=== PATIENT | male | born 1950 | race Caucasian/White ===

== ENCOUNTER 2017-08-07 14:55 | Inpatient (IN) | payer OTHER, MEDICARE ==
[~2017-08-07] VITALS: Ht 190.5 cm; Wt 154.2 kg
--- NOTE | 2017-08-07 15:00 | NUR ---
[id number] S/P TRIP AND FALL IN THE PARKING LOT. C/O RT KNEE, RT UPPER LEG. DENIES HITTING HEAD. VSS
[2017-08-07] MEDS ORDERED: HYDROCODONE/APAP 5/325MG 1 EACH TABLET PO ONE (15:30)
[2017-08-07] MEDS ORDERED: HYDROCODONE/APAP 5/325MG 1 EACH TABLET ONE (15:39)
--- NOTE | 2017-08-07 16:07 | NUR ---
CALLED [facility], DR BONILLA WAS PAGED.
--- NOTE | 2017-08-07 16:35 | NUR ---
IV ACCESS STARTED. BLOOD DRAWN FOR LABS.
[2017-08-07 16:39] LABS: BASOPHILS # (AUTO) 0.1 /CMM (0.0-0.2); BASOPHILS % (AUTO) 0.5 % (0.0-2.0); EOSINOPHILS # (AUTO) 0.1 /CMM (0.0-0.7); EOSINOPHILS % (AUTO) 0.8 % (0.0-6.0); HEMATOCRIT 38 % (39-51); HEMOGLOBIN 13.4 g/dL (13.5-17.5); LYMPHOCYTES # (AUTO) 1.4 /CMM (0.8-4.8); LYMPHOCYTES % (AUTO) 13.2 % (20.0-44.0); MEAN CORPUSCULAR HEMOGLOBIN 32 PG (26.0-33.0); MEAN CORPUSCULAR HGB CONC 35 g/dl (31.0-36.0); MEAN CORPUSCULAR VOLUME 91 fL (80-96); MONOCYTES # (AUTO) 0.9 /CMM (0.1-1.30); NEUTROPHILS % (AUTO) 76.5 % (43.0-81.0); PLATELET COUNT (AUTO) 124 /CMM (150-450); RDW COEFFICIENT OF VARIATION 13.5 (11.5-15.0); RED BLOOD CELL COUNT(AUTO) 4.18 MIL/uL (4.5-6.0); WHITE BLOOD COUNT (AUTO) 10.5 K/uL (4.3-11.0)
[2017-08-07 16:48] LABS: CALCIUM, SERUM 8.6 mg/dL (8.5-10.1); CREATININE 1.3 mg/dL (0.6-1.3); POTASSIUM 4.2 mmol/L (3.5-5.1)
--- NOTE | 2017-08-07 16:52 | NUR ---
CALLED [employer] STATION MANAGER WAS PAGED.
[2017-08-07 17:04] LABS: INR 0.96 (0.87-1.13)
[2017-08-07] MEDS ORDERED: ONDANSETRON HCL/PF 4 MG/2 ML VIAL IVP PRN ×2 (17:30→19:30)
[2017-08-07] MEDS ORDERED: HYDROCODONE/APAP 10/325MG 1 EA TABLET PO PRN (17:30)
[2017-08-07] MEDS ORDERED: HYDROCODONE/APAP 5/325MG 1 EACH TABLET PO PRN (17:30)
[2017-08-07] MEDS ORDERED: Z GUARD REMEDY 2 OZ OINT TP PRN ×2 (17:30→19:30)
[2017-08-07] MEDS ORDERED: HYDROMORPHONE INJ 2 MG/ML DISP.SYRIN IV PRN (17:30)
[2017-08-07] MEDS ORDERED: ACETAMINOPHEN 325 MG TABLET PO PRN ×2 (17:30→19:30)
[2017-08-07] MEDS ORDERED: MAG HYDROX/AL HYDROX/SIMETH 30 ML UDC PO PRN ×2 (17:30→19:30)
[2017-08-07] MEDS ORDERED: MAGNESIUM HYDROXIDE 30 ML UDC PO PRN ×2 (17:30→19:30)
[2017-08-07] MEDS ORDERED: ZOLPIDEM TARTRATE 5 MG TABLET PO PRN ×2 (17:30→19:30)
--- NOTE | 2017-08-07 17:34 | NUR ---
REPORT GIVEN TO FIDENCIO OCAMPO FOR MS ROOM 104
[2017-08-07] MEDS ORDERED: SIMV40TA5 PO (18:15)
[2017-08-07] MEDS ORDERED: GABA-532 PO (18:15)
[2017-08-07] MEDS ORDERED: CHOL200026 PO (18:15)
[2017-08-07] MEDS ORDERED: BUDE3CAP8 PO (18:15)
[2017-08-07] MEDS ORDERED: LOSA50TA21 PO (18:15)
[2017-08-07] MEDS ORDERED: TRIA1CAP6 PO (18:15)
[2017-08-07 20:00] VITALS: BP 110/64
--- NOTE | 2017-08-07 20:17 | NUR ---
spoke to md MOREL, WITH NEW ORDER FOR DIET, IVF POST MN AND MED RECON.
[2017-08-07] MEDS: CHOLECALCIFEROL 1,000 UNIT TABLET (VIT D3) PO SCH (21:51)
[2017-08-07] MEDS: HYDROCODONE/APAP 10/325MG 1 EA TABLET PO PRN (21:52)
[2017-08-07] MEDS: SIMVASTATIN 40 MG TABLET PO SCH (21:52)
[2017-08-08] MEDS: IV D5/ 0.9% NACL 1,000 ML IV PRN ×2 (00:25→21:02)
--- NOTE | 2017-08-08 03:04 | NUR ---
RN NOTE RECEIVED REPORT FROM VIANEY OCAMPO FOR CONTINUITY OF CARE. RECEIVED PT IN NO ACUTE DISTRESS IN BED. PT IS A/O X 4 AND ABLE TO MAKE NEEDS KNOWN. WILL CONTINUE TO MONITOR PT.
[2017-08-08] MEDS: HYDROMORPHONE INJ 2 MG/ML DISP.SYRIN IV PRN ×2 (03:10→07:02)
[2017-08-08 04:00] VITALS: BP_SYST 123; BP_SYST 139; BP_DIAS 68; BP_DIAS 96
--- NOTE | 2017-08-08 06:47 | NUR ---
RN CLOSING NOTE PT REMAINS IN NO ACUTE DISTRESS IN BED. PT DID NOT HAVE ANY SIGNIFICANT CHANGE IN CONDITION DURING SHIFT. ALL NEEDS MET, ALL ORDERS CARRIED OUT. PT AWAITING RIGHT QUADRICEPS TENDON SX. WILL ENDORSE CARE TO AM RN FOR CONTINUITY OF CARE.
[2017-08-08] MEDS ORDERED: PANTOPRAZOLE 40 MG TABLET.DR PO SCH (07:30)
--- NOTE | 2017-08-08 07:30 | NUR ---
PT RECEIVED RESTING COMFORTABLY IN BED WITH EYES CLOSED. NO S/S OR C/O PAIN OR DISTRESS NOTED. SIDE RAILS UP X2, CALL LIGHT LEFT WITHIN REACH. WILL CONTINUE PLAN OF CARE.
[2017-08-08 08:00] VITALS: BP 138/72
--- NOTE | 2017-08-08 08:00 | NUR ---
AM CHARTING I CHARTED INTERVENTIONS UNDER JULI SUSAN RN'S ACCOUNT BY MISTAKE.
[2017-08-08] MEDS ORDERED: BUPIVACAINE 0.5 % PF 150 MG/30 ML VIAL ONE (09:17)
[2017-08-08] MEDS ORDERED: SUCCINYLCHOLINE CHLORIDE 20 MG/ML VIAL ONE (09:38)
[2017-08-08] MEDS ORDERED: ROCURONIUM BROMIDE 50 MG/5 ML ONE (09:38)
[2017-08-08] MEDS ORDERED: HYDROMORPHONE 1 MG/1 ML DISP.SYRIN ONE (12:09)
[2017-08-08] MEDS: BUDESONIDE 3 MG CAP.SR.24H PO SCH (13:36)
[2017-08-08] MEDS: HYDROCODONE/APAP 10/325MG 1 EA TABLET PO PRN ×2 (13:36→23:57)
[2017-08-08] MEDS: GABAPENTIN 100 MG CAPSULE PO SCH ×2 (13:37→16:52)
[2017-08-08] MEDS: PANTOPRAZOLE 40 MG TABLET.DR PO SCH (13:37)
[2017-08-08] MEDS: TRIAMTERENE/HYDROCHLOROTHIAZID (37.5/25MG) 1 UDCAP PO SCH (13:38)
[2017-08-08] MEDS: CHOLECALCIFEROL 1,000 UNIT TABLET (VIT D3) PO SCH (13:38)
[2017-08-08] MEDS ORDERED: TRAMADOL HCL 50 MG TABLET PO PRN (14:30)
[2017-08-08] MEDS ORDERED: oxyCODONE IR immediate release 5 MG CAPSULE PO PRN (14:30)
[2017-08-08 16:00] VITALS: BP 132/71
[2017-08-08] MEDS: RIVAROXABAN 10 MG TABLET PO SCH (16:54)
[2017-08-08] MEDS: HYDROCODONE/APAP 5/325MG 1 EACH TABLET PO PRN (16:55)
[2017-08-08] MEDS: CEFAZOLIN IV SCH (17:56)
[2017-08-08] MEDS: LOSARTAN POTASSIUM 50 MG TABLET PO SCH (17:56)
[2017-08-08] MEDS: D5W IV SCH (17:56)
--- NOTE | 2017-08-08 19:30 | NUR ---
RN INITIAL NOTES RECEIVED PATIENT IN BED, AWAKE, ALERT AND ORIENTED X4. BREATHING EVEN AND NONLABORED, TOLERATING ROOM AIR WELL, FREE FROM ANY S/S OF RESPIRATORY DISTRESS. PATIENT DENIES ANY PAIN AT THIS TIME. RIGHT AC #20 GAUGE PATENT AND INTACT, IVF INFUSING PRESCRIBED TOLERATING WELL, FREE FROM ANY S/S OF INFILTRATION OR PHLEBITIS. RIGHT LEG KNEE IMMOBILIZER IN PLACE, S/P RIGHT QUADRICEPS TENDON REPAIR EARLIER TODAY. RIGHT LEG NOTED WITH NONPITTING EDEMA. PLAN OF CARE DISCUSSED WITH THE PATIENT, WHO VERBALIZES UNDERSTANDING, CALL LIGHT LEFT WITHIN EASY REACH, BED IN LOWEST AND LOCKED POSITION. WILL CONTINUE TO CLOSELY MONITOR THE PATIENT.
--- NOTE | 2017-08-08 19:51 | NUR ---
CHANGE OF SHIFT REPORT PT RESTING COMFORTABLY IN BED WITH EYES CLOSED. NO S/S OR C/O PAIN OR DISTRESS NOTED. SIDE RAILS UP X2, CALL LIGHT LEFT WITHIN REACH. PT KEPT CLEAN, DRY, AND COMFORTABLY. NO SIGNIFICANT CHANGES SINCE PREVIOUS SHIFT. REPORT GIVEN TO KELSEY OCAMPO.
[2017-08-08 20:00] VITALS: BP_SYST 127; BP_DIAS 66; BP_DIAS 76
[2017-08-08] MEDS: SIMVASTATIN 40 MG TABLET PO SCH (21:01)
[2017-08-08] MEDS ORDERED: FAMOTIDINE/PF INJ 20 MG/2 ML VIAL IV ONE (21:22)
[2017-08-08] MEDS ORDERED: MAG HYDROX/AL HYDROX/SIMETH 30 ML UDC ONE (21:22)
[2017-08-08] MEDS: FAMOTIDINE/PF INJ 20 MG/2 ML VIAL IV SCH (21:26)
[2017-08-08] MEDS: MAG HYDROX/AL HYDROX/SIMETH 30 ML UDC PO PRN (21:26)
--- NOTE | 2017-08-08 21:32 | NUR ---
RN NOTES PATIENT WITH COMPLAINT OF DYSPEPSIA. DR CHEN MADE AWARE, WITH ORDER TRO CHANGE FREQUENCY OF MAALOX 30ML PO TO Q4H PRN, ALSO WITH NEW ORDER FOR PEPCID 20MG IVP BID, FIRST DOSE NOW. ORDERS READ BACK FOR CLARIFICATION, ORDERS PUT IN, CHARGE NURSE NOTIFIED FOR MEDICATION OVERRIDE. WILL ADMINISTER AND CONTINUE TO CLOSELY MONITOR THE PATIENT
[2017-08-08] MEDS ORDERED: cetrizine 10 MG TABLET ONE (23:30)
[2017-08-08] MEDS ORDERED: PROMETHAZINE HCL SYRUP 6.25 MG/5 ML UDC PO ONE (23:30)
[2017-08-08] MEDS ORDERED: PROMETHAZINE HCL 25 MG/ML AMPUL ONE (23:51)
[2017-08-08] MEDS: cetrizine 10 MG TABLET PO SCH (23:55)
[2017-08-08] MEDS: ONDANSETRON HCL/PF 4 MG/2 ML VIAL IVP PRN (23:56)
[2017-08-09] MEDS ORDERED: PROMETHAZINE HCL 25 MG/ML AMPUL IV ONE
--- NOTE | 2017-08-09 | NUR ---
RN NOTES PATIENT NOTED WITH EPISODE OF EMESIS X1 WITH 800ML OF DARK BROWN/RED COLORED GASTRIC CONTENTS. PER THE PATIENT, HE HAS NOT HAD ANYTHING TO EAT/DRINK THAT WAS RED COLORED, LOW APPETITE SINCE COMING BACK FROM [place]. PATIENT ALSO STATES HE HAS ALLERGIES, TAKES ZYRTEC AT HOME. DR CHEN CALLED AND MADE AWARE, WITH NEW ORDERS: 1) UPGRADE TO TELEMETRY STATUS 2) CHANGE FREQUENCY OF ZOFRAN 4MG IVP TO Q4H PRN 3) PROMETHAZINE 10MG IVP X1 4)ZYRTEC 10MG PO QHS START FIRST DOSE NOW 5)KEEP PATIENT NPO UNTIL NAUSEA/VOMITING SUBSIDES. ALL ORDERS READ BACK FOR CLARIFICATION. CHARGE NURSE LEIA MADE AWARE. WILL CARRY OUT ALL NEW ORDERS AND CONTINUE TO CLOSELY MONITOR THE PATIENT
[2017-08-09] MEDS: D5W IV SCH ×2 (02:47→09:56)
[2017-08-09] MEDS: CEFAZOLIN IV SCH ×2 (02:47→09:56)
[2017-08-09] MEDS: HYDROCODONE/APAP 5/325MG 1 EACH TABLET PO PRN ×2 (02:52→17:08)
[2017-08-09 04:00] VITALS: BP 128/65
[2017-08-09] MEDS ORDERED: ONDANSETRON HCL/PF 4 MG/2 ML VIAL ONE (04:08)
[2017-08-09] MEDS: ONDANSETRON HCL/PF 4 MG/2 ML VIAL IVP PRN (04:09)
[2017-08-09] MEDS: HYDROMORPHONE INJ 2 MG/ML DISP.SYRIN IV PRN (04:10)
[2017-08-09 06:46] LABS: BASOPHILS % (AUTO) 0.1 % (0.0-2.0); EOSINOPHILS % (AUTO) 0.4 % (0.0-6.0); HEMATOCRIT 33 % (39-51); HEMOGLOBIN 11.3 g/dL (13.5-17.5); LYMPHOCYTES # (AUTO) 1.1 /CMM (0.8-4.8); LYMPHOCYTES % (AUTO) 14.3 % (20.0-44.0); MEAN CORPUSCULAR HEMOGLOBIN 32 PG (26.0-33.0); MEAN CORPUSCULAR HGB CONC 34 g/dl (31.0-36.0); MEAN CORPUSCULAR VOLUME 93 fL (80-96); MONOCYTES % (AUTO) 12.8 % (2.0-12.0); NEUTROPHILS # (AUTO) 5.5 /CMM (1.8-8.9); NEUTROPHILS % (AUTO) 72.4 % (43.0-81.0); PLATELET COUNT (AUTO) 105 /CMM (150-450); RDW COEFFICIENT OF VARIATION 14.6 (11.5-15.0); RED BLOOD CELL COUNT(AUTO) 3.56 MIL/uL (4.5-6.0); WHITE BLOOD COUNT (AUTO) 7.6 K/uL (4.3-11.0)
--- NOTE | 2017-08-09 07:00 | NUR ---
RN NOTES PATIENT RESTING IN BED, DENIES ANY EPISODES OF N/V SINCE PROMETHAZINE WAS ADMINISTERED. DELGADO CATH REMAINS PATENT AND INTACT. PATIENT ENDORSED TO THE AM SHIFT NURSE FOR MARISSA
[2017-08-09 07:10] LABS: BILIRUBIN,TOTAL 0.5 mg/dL (0.2-1.0); CALCIUM, SERUM 8.4 mg/dL (8.5-10.1); CREATININE 1.3 mg/dL (0.6-1.3); MAGNESIUM 2.1 mg/dL (1.8-2.4); PHOSPHORUS 3.8 mg/dL (2.5-4.9); POTASSIUM 3.6 mmol/L (3.5-5.1); TOTAL PROTEIN, SERUM 5.8 g/dL (6.4-8.2)
--- NOTE | 2017-08-09 07:23 | NUR ---
RETURNS PROCESSOR NOTE RECEIVED PATIENT IN BED, RESTING COMFORTABLY IN BED WITH EYES CLOSED. NO SIGNS AND SYMPTOMS OF PAIN OR DISTRESS NOTED. SIDE RAILS UP X2, CALL LIGHT WITHIN REACH. WILL CONTINUE TO MONITOR
[2017-08-09 08:00] VITALS: BP 122/66
--- NOTE | 2017-08-09 08:12 | NUR ---
SKILL LABOR NOTES PATIENT STATES HE IS NO LONGER NAUSEOUS WILL TRY CLEAR LIQUID DIET TO SEE HOW PATIENT TOLERATES
[2017-08-09] MEDS: GABAPENTIN 100 MG CAPSULE PO SCH ×2 (09:56→17:01)
[2017-08-09] MEDS: TRIAMTERENE/HYDROCHLOROTHIAZID (37.5/25MG) 1 UDCAP PO SCH (09:57)
[2017-08-09] MEDS: PANTOPRAZOLE 40 MG TABLET.DR PO SCH (09:57)
[2017-08-09] MEDS: HYDROCODONE/APAP 10/325MG 1 EA TABLET PO PRN ×3 (09:57→22:08)
[2017-08-09] MEDS: CHOLECALCIFEROL 1,000 UNIT TABLET (VIT D3) PO SCH (09:58)
[2017-08-09] MEDS: FAMOTIDINE/PF INJ 20 MG/2 ML VIAL IV SCH ×2 (09:58→17:01)
[2017-08-09] MEDS: BUDESONIDE 3 MG CAP.SR.24H PO SCH (10:02)
--- NOTE | 2017-08-09 11:00 | NUR ---
MS RN NOTES REMOVED PATIENT DELGADO CATH PER MD ORDER. NO COMPLICATIONS NOTED. WARD CARE COMPLETED.
--- NOTE | 2017-08-09 11:12 | NUR ---
MS RN NOTES PATIENT AMBULATED WITH PHYSICAL THERAPY MOD ASSIST WALKER. PER PHYSICAL THERAPIST PATIENT IS CLEARED FOR ARU OR HOME HEALTH PT. 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
--- NOTE | 2017-08-09 11:20 | NUR ---
CROSSBAR SWITCH ADJUSTER NOTE RECEIVED PATIENT IN THE CHAIR, SITTING COMFORTABLY. No pain or discomfort noted.
[2017-08-09] MEDS: IV D5/ 0.9% NACL 1,000 ML IV PRN (14:28)
[2017-08-09 16:00] VITALS: BP 114/57
--- NOTE | 2017-08-09 16:44 | NUR ---
MS RN NOTES PATIENT STATES HE HAS NOT URINATED YET. WILL BLADDER SCAN.
--- NOTE | 2017-08-09 16:59 | NUR ---
MS RN NOTES PATIENT IS REFUSING BLADDER SCAN AT THIS TIME. "[employer]" EDUCATED ON RETENTION AND COMPLICATIONS ASSOCIATED. PATIENT STATES UNDERSTANDING AND WILL LET US KNOW WHEN HE WILL ALLOW BLADDER SCAN
[2017-08-09] MEDS: RIVAROXABAN 10 MG TABLET PO SCH (17:02)
--- NOTE | 2017-08-09 17:50 | NUR ---
MS RN NOTES BLADDER SCAN COMPLETED ON PATIENT. NO URINE IN BLADDER AT THIS TIME
[2017-08-09] MEDS: LOSARTAN POTASSIUM 50 MG TABLET PO SCH (18:00)
--- NOTE | 2017-08-09 19:10 | NUR ---
MS RN NOTES MESSAGE TO DR CHEN IN RE TO PATIENT NOT URINATING
--- NOTE | 2017-08-09 19:13 | NUR ---
MED SURGE RN NOTE RECEIVED PATIENT IN BED, PAIN MEDICATION WAS EFFECTIVE, NO S/S OF PAIN OR DISCOMFORT NOTED. ALL DUE MEDS ARE GIVEN, CALL LIGHT IN REACH, BED IN LOW POSITION, 2 SIDE RAILS UP, NO S/S OF DISTRESS, ALL NEEDS ATTENDED
--- NOTE | 2017-08-09 19:18 | NUR ---
MS RN NOTES SPOKE WITH DR CHEN PER INSERT DELGADO CATH AGAIN AND KEEP IN
--- NOTE | 2017-08-09 19:53 | NUR ---
MS-1/STONE DRILLER DELGADO CATH 16FR PLACED VIA STERILE TECHNIQUE BY MYSELF PER DR. CHEN ORDER. PT TOLERATED WELL. 300ML CLEAR YELLOW URINE RETURNED. WILL CONTINUE TO MONITOR.
[2017-08-09 20:00] VITALS: BP 122/62
[2017-08-09] MEDS: SIMVASTATIN 40 MG TABLET PO SCH (21:07)
[2017-08-09] MEDS: cetrizine 10 MG TABLET PO SCH (21:07)
[2017-08-10] MEDS: HYDROCODONE/APAP 5/325MG 1 EACH TABLET PO PRN (00:53)
[2017-08-10] MEDS: IV D5/ 0.9% NACL 1,000 ML IV PRN ×2 (03:50→21:26)
[2017-08-10 04:00] VITALS: BP 104/69
[2017-08-10 08:00] VITALS: BP 113/61
--- NOTE | 2017-08-10 08:00 | NUR ---
MED SURGE RN NOTE RECEIVED PATIENT IN BED, PAIN MEDICATION OFFERED FOR MILD PAIN HOWEVER PATIENT STATES HE WANTS TO WAIT IT OUT RN INFORMED PATIENT ABOUT THE IMPORTANCE OF PAIN CONTROL PATIENT VERBALIZED UNDERSTANDING. NO S/S OF PAIN OR DISCOMFORT NOTED. CALL LIGHT IN REACH, BED IN LOW POSITION, 2 SIDE RAILS UP, NO S/S OF DISTRESS, RN WILL CONTINUE TO MONITOR THROUGHOUT THE DAY , ALSO THE PATIENT STATED POSSIBLE DISCHARGE THE RN WILL CONTINUE TO REVIEW AND UPDATE PATIENT OF D/C STATUS
[2017-08-10] MEDS: GABAPENTIN 100 MG CAPSULE PO SCH ×2 (09:03→17:15)
[2017-08-10] MEDS: CHOLECALCIFEROL 1,000 UNIT TABLET (VIT D3) PO SCH (09:03)
[2017-08-10] MEDS: TRIAMTERENE/HYDROCHLOROTHIAZID (37.5/25MG) 1 UDCAP PO SCH (09:04)
[2017-08-10] MEDS: FAMOTIDINE/PF INJ 20 MG/2 ML VIAL IV SCH ×2 (09:04→17:16)
[2017-08-10] MEDS: PANTOPRAZOLE 40 MG TABLET.DR PO SCH (09:04)
[2017-08-10] MEDS: BUDESONIDE 3 MG CAP.SR.24H PO SCH (09:05)
[2017-08-10] MEDS: HYDROCODONE/APAP 10/325MG 1 EA TABLET PO PRN (10:05)
[2017-08-10] MEDS ORDERED: HYDROMORPHONE INJ 2 MG/ML DISP.SYRIN IV PRN (11:00)
[2017-08-10] MEDS ORDERED: oxyCODONE IR immediate release 5 MG CAPSULE PO PRN ×2 (11:00→12:00)
[2017-08-10] MEDS ORDERED: RIVA10TA PO (11:35)
[2017-08-10] MEDS: ACETAMINOPHEN 325 MG TABLET PO SCH ×4 (12:00→21:26)
--- NOTE | 2017-08-10 16:08 | NUR ---
RN NOTE PATIENT DISCHARGE HELD OFF UNTIL THE AM PER CHARGE NURSE RN INFORMED THE PATIENT PATIENT VERBALIZED UNDERSTANDING
[2017-08-10] MEDS: LOSARTAN POTASSIUM 50 MG TABLET PO SCH (17:17)
[2017-08-10] MEDS: RIVAROXABAN 10 MG TABLET PO SCH (17:25)
--- NOTE | 2017-08-10 18:50 | NUR ---
rn closing note rm 106 patient stable throughout the day patient worked with physical therapy patient also reported minor pain pain regimen changed via MD , patient stated pain is controlled now . patient is independent with turning and repositioning patient helps with adls. patient has not lost or gain any significant weight. patient f/c in place and draining to gravity patient has zero complaints , rn will endorse continued care to pm rn 9AM DISCHARGE EMS ARRANGED PER CHARGE NURSE ANIYAH
--- NOTE | 2017-08-10 19:15 | NUR ---
RN INITIAL NOTES RECEIVED PATIENT IN BED, AWAKE AND ALERT. PATIENT WITH NO ACUTE DISTRESS AND DISCOMFORT AT THIS TIME. ON ROOM AIR WITH NO DISTRESS. PATIENT WITH R KNEE IMMOBILIZER IN PLACE, SURGICAL DRESSING IN PLACE WITH NO BLEEDING/SOILAGE NOTED. PATIENT ABLE TO MOVE IN BED WITH MINIMAL ASSISTANCE, SAFETY AND COMFORT ENSURED, BLE ELEVATED IN PILLOWS TOLERATED. PATIENT F/C IN PLACE, TEA COLOR URINE DRAINING. L FOREARM G22, INTACT, NO SIGNS OF INFILTRATION WITH IVF ORDERED. PATIENT'S NEEDS ANTICIPATED AND MET. SAFETY AND COMFORT ENSURED. BED IN LOW AND LOCKED POSITION. CALL LIGHT IN REACH. WILL MONITOR CLOSELY. UPDATED PATIENT WITH PAIN MANAGEMENT ORDERS. PATIENT VERBALIZED UNDERSTANDING AND HAS NOT TAKEN ANY NARCOTICS RECENTLY AND PAIN IS CURRENTLY MANAGED WELL. WILL MONITOR.
[2017-08-10 20:00] VITALS: BP 109/63
[2017-08-10] MEDS: cetrizine 10 MG TABLET PO SCH (21:27)
[2017-08-10] MEDS: SIMVASTATIN 40 MG TABLET PO SCH (21:27)
[2017-08-11] MEDS: ACETAMINOPHEN 325 MG TABLET PO SCH ×5 (01:00→13:19)
--- NOTE | 2017-08-11 01:02 | NUR ---
RN NOTES PATIENT SLEEPING COMFORTABLY. NO DISTRESS. SCHEDULED PRN NOT ADMINISTERED. NO INDICATION FOR PAIN. Addendum: 08/11/17 at 0705 by BALTA JOSEPH RN SCHEDULED TYLENOL NOT ADMINISTERED.
[2017-08-11 04:00] VITALS: BP 119/61
--- NOTE | 2017-08-11 07:05 | NUR ---
RN CLOSING NOTES PATIENT IN BED, SLEEPING COMFORTABLY, NO ACUTE DISTRESS AND CHANGE IN CONDITION OBSERVED OVERNIGHT. IVF ORDERED. PATIENT KEPT CLEAN AND DRY. DUE MEDS GIVEN ORDERED. PATIENT'S NEEDS ANTICIPATED AND MET. SAFETY AND COMFORT ENSURED. WILL ENDORSE ACCORDINGLY FOR CONTINUITY OF CARE.
--- NOTE | 2017-08-11 07:30 | NUR ---
RN INITIAL NOTES RECEIVED PATIENT IN BED, AWAKE AND ALERT. PATIENT WITH NO ACUTE DISTRESS AND DISCOMFORT AT THIS TIME. ON ROOM AIR WITH NO DISTRESS. PATIENT WITH R KNEE IMMOBILIZER IN PLACE, SURGICAL DRESSING IN PLACE WITH NO BLEEDING/SOILAGE NOTED. PATIENT ABLE TO MOVE IN BED WITH MINIMAL ASSISTANCE, SAFETY AND COMFORT ENSURED, BLE ELEVATED IN PILLOWS TOLERATED. PATIENT F/C IN PLACE, YELLOW COLOR URINE DRAINING. L FA G22, INTACT, NO SIGNS OF INFILTRATION WITH IVF ORDERED. PATIENT'S NEEDS ANTICIPATED AND MET. SAFETY AND COMFORT ENSURED. BED IN LOW AND LOCKED POSITION. CALL LIGHT IN REACH. WILL MONITOR CLOSELY.
[2017-08-11 08:00] VITALS: BP_SYST 119; BP_SYST 137; BP_DIAS 63; BP_DIAS 88
[2017-08-11] MEDS: GABAPENTIN 100 MG CAPSULE PO SCH (09:17)
[2017-08-11] MEDS: CHOLECALCIFEROL 1,000 UNIT TABLET (VIT D3) PO SCH (09:17)
[2017-08-11 09:18] VITALS: BP 119/63
[2017-08-11] MEDS: FAMOTIDINE/PF INJ 20 MG/2 ML VIAL IV SCH (09:18)
[2017-08-11] MEDS: TRIAMTERENE/HYDROCHLOROTHIAZID (37.5/25MG) 1 UDCAP PO SCH (09:18)
[2017-08-11] MEDS: BUDESONIDE 3 MG CAP.SR.24H PO SCH (09:20)
[2017-08-11] MEDS: MAG HYDROX/AL HYDROX/SIMETH 30 ML UDC PO PRN (09:21)
[2017-08-11] MEDS: PANTOPRAZOLE 40 MG TABLET.DR PO SCH (09:22)
[2017-08-11] MEDS ORDERED: MAGNESIUM HYDROXIDE 30 ML UDC PO PRN (09:30)
== END 2017-08-11 13:22 | DRG 501 ==
LOC: ER 14:58 → MEDSG1 18:10 → ER 19:22 → TELE1 08-08 23:50 → MEDSG1 08-09 10:00
PROVIDERS: ADMIT Internal Medicine; ATTEND Internal Medicine
PROC: 0LQQ0ZZ Repair Right Knee Tendon, Open Approach (ICD-10-PCS; principal; 2017-08-08 12:00)
DX: S76.111A Strain of right quadriceps muscle, fascia and tendon, initial encounter (principal); E44.0 Moderate protein-calorie malnutrition; Z68.41 Body mass index [BMI] 40.0-44.9, adult; G62.9 Polyneuropathy, unspecified; W01.0XXA Fall on same level from slipping, tripping and stumbling without subsequent striking against object, initial encounter; Y92.481 Parking lot as the place of occurrence of the external cause; I10 Essential (primary) hypertension; E78.5 Hyperlipidemia, unspecified; E66.9 Obesity, unspecified; I87.2 Venous insufficiency (chronic) (peripheral)
CPT/HCPCS: 36415; 71010-TC; 73564-TC; 80048-TC; 80053-TC; 83735-TC; 84100-TC; 85025-TC; 85730-TC; 86850-TC; 87081-TC; 97116-TC; 97530-TC; A4606; A6253; A6402; J0330; J0690; J1100; J1170; J1885; J2405; J2550; J2704; J2710; J3490; J7042; J7060; Q0169; Z7610